=== PATIENT | female | born 1985 | race Caucasian/White ===

== ENCOUNTER 2018-08-11 08:10 | Emergency (ER) | payer OTHER ==
[~2018-08-11] VITALS: Ht 152.4 cm; Wt 84.4 kg
[2018-08-11 08:10] VITALS: BP 140/92
--- NOTE | 2018-08-11 09:45 | REP ---
RIGHT HAND, FOUR VIEWS: There is no evidence of an acute fracture, dislocation or intrinsic bone disease. IMPRESSION: No fracture or dislocation. Electronically Signed by Torsten Grimm MD 08/11/2018 04:15 P
== END 2018-08-11 10:14 | disposition home or self-care (01) ==
LOC: M ED 08:10
DX: S01.81XA Laceration without foreign body of other part of head, initial encounter (principal); S69.91XA Unspecified injury of right wrist, hand and finger(s), initial encounter; W10.8XXA Fall (on) (from) other stairs and steps, initial encounter; Y92.018 Other place in single-family (private) house as the place of occurrence of the external cause

== ENCOUNTER → 2020-05-16 | Outpatient (CLI) | payer MEDICAID | LOC: M OUTALCOH 07:55 | PROVIDERS: ATTEND Psychiatry & Neurology Psychiatry | DX: Z02.89 Encounter for other administrative examinations (principal) ==

== ENCOUNTER 2020-05-23 11:00 | Outpatient (RCR) | payer MEDICAID | END 2020-06-02 | LOC: M OUTALCOH 11:00 | PROVIDERS: ATTEND Psychiatry & Neurology Psychiatry | DX: F12.20 Cannabis dependence, uncomplicated (principal); F17.200 Nicotine dependence, unspecified, uncomplicated ==

== ENCOUNTER 2020-07-02 16:00 | Outpatient (RCR) | payer MEDICAID | END 2020-07-03 | LOC: M OUTALCOH 16:00 | PROVIDERS: ATTEND Psychiatry & Neurology Psychiatry | DX: F12.20 Cannabis dependence, uncomplicated (principal); F17.200 Nicotine dependence, unspecified, uncomplicated ==

== ENCOUNTER → 2020-08-02 | Outpatient (RCR) | payer MEDICAID | LOC: M OUTALCOH 07-04 13:00 | PROVIDERS: ATTEND Psychiatry & Neurology Psychiatry | DX: F12.20 Cannabis dependence, uncomplicated (principal); F17.200 Nicotine dependence, unspecified, uncomplicated ==

== ENCOUNTER 2020-08-27 09:00 | Outpatient (RCR) | payer MEDICAID | END 2020-09-02 | LOC: M OUTALCOH 09:00 | PROVIDERS: ATTEND Psychiatry & Neurology Psychiatry | DX: F12.20 Cannabis dependence, uncomplicated (principal); F17.200 Nicotine dependence, unspecified, uncomplicated ==

== ENCOUNTER 2020-10-01 08:00 | Outpatient (RCR) | payer MEDICAID | END 2020-10-02 | LOC: M OUTALCOH 08:00 | PROVIDERS: ATTEND Psychiatry & Neurology Psychiatry | DX: F12.20 Cannabis dependence, uncomplicated (principal); F17.200 Nicotine dependence, unspecified, uncomplicated ==

== ENCOUNTER 2020-10-28 14:02 | Outpatient (RCR) | payer MEDICAID | END 2020-11-02 | LOC: M OUTALCOH 14:02 | PROVIDERS: ATTEND Psychiatry & Neurology Psychiatry | DX: F12.20 Cannabis dependence, uncomplicated (principal); F17.200 Nicotine dependence, unspecified, uncomplicated ==

== ENCOUNTER → 2020-10-28 | Outpatient (CLI) | payer OTHER ==
--- NOTE | 2020-10-28 14:15 | REP ---
INDICATION: SCOLIOSIS, UNSPECIFIED. COMPARISON: None. TECHNIQUE: Upright AP views of the thoracolumbar spine are provided, two views. FINDINGS: Thoracic vertebral body heights are preserved. No structural vertebral anomaly is seen. There is a mild levoconvex curve in the thoracic spine with its apex at T9. This measures 12 degrees from T6 through T11. No other curvature is appreciated. Pedicles and posterior elements are intact. No bony destructive lesion is seen. IMPRESSION: Mild levoconvex thoracic curvature. <Electronically signed by Fazal Sevilla > 10/28/20 [id number]
== END ==
LOC: M LAB 11:17
PROVIDERS: ATTEND Physician Assistant
DX: M41.9 Scoliosis, unspecified (principal)

== ENCOUNTER → 2020-10-29 | Outpatient (REF) | payer OTHER | LOC: M SFHCWAGY 08:41 | PROVIDERS: ATTEND Nurse Practitioner Women's Health | DX: Z12.4 Encounter for screening for malignant neoplasm of cervix (principal); Z77.9 Other contact with and (suspected) exposures hazardous to health | CPT/HCPCS: 87624; G0123 ==

== ENCOUNTER → 2020-11-12 | Outpatient (REF) | payer MEDICAID | LOC: M LAB REF 19:16 | PROVIDERS: ATTEND Surgery | DX: L72.3 Sebaceous cyst (principal) ==

== ENCOUNTER 2020-12-02 15:56 | Outpatient (RCR) | payer MEDICAID | END 2020-12-03 | LOC: M OUTALCOH 15:56 | PROVIDERS: ATTEND Psychiatry & Neurology Psychiatry | DX: F12.20 Cannabis dependence, uncomplicated (principal); F17.200 Nicotine dependence, unspecified, uncomplicated ==

== ENCOUNTER 2020-12-18 10:00 | Outpatient (RCR) | payer MEDICAID | END 2021-01-02 | LOC: M OUTALCOH 10:00 | PROVIDERS: ATTEND Psychiatry & Neurology Psychiatry | DX: F12.20 Cannabis dependence, uncomplicated (principal); F17.200 Nicotine dependence, unspecified, uncomplicated ==

== ENCOUNTER → 2021-01-09 | Outpatient (CLI) | payer OTHER, MEDICAID ==
--- NOTE | 2021-01-09 11:34 | REP ---
INDICATION: PELVIC AND PERINEAL PAIN OTHER CHRONIC PAIN OVARIAN CYST. COMPARISON: None. TECHNIQUE: Transvesical and transvaginal imaging FINDINGS: The uterus measures 9.5 x 3.9 x 4.9 cm. The parenchymal echo pattern is heterogenous but there are no measurable masses. Due to the heterogeneity of the uterine parenchyma the endometrial echo complex is less than optimally visualized. It has a maximal thickness of approximately 7 mm in its fundal portion. The right ovary measures 3.2 x 2.2 x 1.8 cm and is within normal limits with an RI of 0.40 The left ovary measures 1.8 x 2.2 x 2.6 cm and is within normal limits with an RI 0.59. There is no free fluid in the cul-de-sac. Incidental note is made of nabothian cysts. IMPRESSION: No acute abnormality is identified. Findings as described above. <Electronically signed by Chavo Mata > 01/09/21 [id number]
== END ==
LOC: M WHC 09:41
PROVIDERS: ATTEND Nurse Practitioner Women's Health
DX: R10.2 Pelvic and perineal pain (principal); G89.29 Other chronic pain; Z87.42 Personal history of other diseases of the female genital tract

== ENCOUNTER 2021-01-22 11:00 | Outpatient (RCR) | payer MEDICAID | END 2021-02-02 | LOC: M OUTALCOH 11:00 | PROVIDERS: ATTEND Psychiatry & Neurology Psychiatry | DX: F12.20 Cannabis dependence, uncomplicated (principal); F17.200 Nicotine dependence, unspecified, uncomplicated ==

== ENCOUNTER 2021-03-05 13:35 | Outpatient (RCR) | payer MEDICAID | END 2021-04-04 | LOC: M OUTALCOH 13:35 | PROVIDERS: ATTEND Psychiatry & Neurology Psychiatry | DX: F12.20 Cannabis dependence, uncomplicated (principal); F17.200 Nicotine dependence, unspecified, uncomplicated ==

== ENCOUNTER 2021-04-16 09:29 | Outpatient (RCR) | payer MEDICAID | END 2021-05-05 | LOC: M OUTALCOH 09:29 | PROVIDERS: ATTEND Psychiatry & Neurology Psychiatry | DX: F12.20 Cannabis dependence, uncomplicated (principal); F17.200 Nicotine dependence, unspecified, uncomplicated ==

== ENCOUNTER → 2021-04-23 | Outpatient (CLI) | payer OTHER ==
[2021-04-23 13:28] LABS: HEMOGLOBIN 13.6 g/dl (12.0-15.5); MEAN CORPUSCULAR HGB CONC 32.4 g/dl (32.0-36.5); MEAN CORPUSCULAR VOLUME 92.5 fl (80.0-96.0); PLATELET COUNT, AUTOMATED 328 10^3/uL (150-450); RED BLOOD COUNT 4.54 10^6/uL (4.00-5.40); WHITE BLOOD COUNT 12.3 10^3/uL (4.0-10.0)
[2021-04-23 16:36] LABS: HEPATITIS C VIRUS ABY INDEX < 0.0 INDEX (<0.8); HIV 1&2 SCREEN CENTAUR NEGATIVE (NEGATIVE)
[2021-04-24 15:49] LABS: GC DNA AMPLIFICATION NEGATIVE (NEGATIVE)
== END ==
LOC: M PLALAB 10:25
PROVIDERS: ATTEND Specialist
DX: Z34.81 Encounter for supervision of other normal pregnancy, first trimester (principal)

== ENCOUNTER 2021-05-21 15:21 | Outpatient (RCR) | payer MEDICAID | END 2021-06-02 | LOC: M OUTALCOH 15:21 | PROVIDERS: ATTEND Psychiatry & Neurology Psychiatry | DX: F12.20 Cannabis dependence, uncomplicated (principal); F17.200 Nicotine dependence, unspecified, uncomplicated ==

== ENCOUNTER → 2021-07-02 | Outpatient (CLI) | payer OTHER | LOC: M WHC 08:03 | PROVIDERS: ATTEND Obstetrics & Gynecology | DX: O34.211 Maternal care for low transverse scar from previous cesarean delivery (principal); Z3A.20 20 weeks gestation of pregnancy ==

== ENCOUNTER → 2021-08-15 | Outpatient (CLI) | payer OTHER ==
[2021-08-15 14:04] LABS: HEMATOCRIT 34.6 % (36.0-47.0); HEMOGLOBIN 11.4 g/dl (12.0-15.5); MEAN CORPUSCULAR HGB CONC 32.9 g/dl (32.0-36.5); PLATELET COUNT, AUTOMATED 341 10^3/uL (150-450); RED BLOOD COUNT 3.68 10^6/uL (4.00-5.40); WHITE BLOOD COUNT 14.4 10^3/uL (4.0-10.0)
[2021-08-15 16:19] LABS: GC DNA AMPLIFICATION NEGATIVE (NEGATIVE)
== END ==
LOC: M PLALAB 09:53
PROVIDERS: ATTEND Obstetrics & Gynecology
DX: O34.211 Maternal care for low transverse scar from previous cesarean delivery (principal)

== ENCOUNTER → 2021-09-15 | Outpatient (REF) | payer OTHER | LOC: M SFHCWAGY 12:49 | PROVIDERS: ATTEND Obstetrics & Gynecology | DX: L02.212 Cutaneous abscess of back [any part, except buttock and flank] (principal) ==

== ENCOUNTER → 2021-10-28 | Outpatient (REF) | payer OTHER ==
[~2021-10-28] MED LIST: PREN1CHW PO
== END ==
LOC: M SFHCWAGY 10:16
PROVIDERS: ATTEND Obstetrics & Gynecology
DX: O34.211 Maternal care for low transverse scar from previous cesarean delivery (principal)

== ENCOUNTER → 2021-11-05 | Outpatient (CLI) | payer MEDICAID, OTHER | LOC: M LABSMTC 09:05 | PROVIDERS: ATTEND Anesthesiology | DX: Z20.828 Contact with and (suspected) exposure to other viral communicable diseases (principal); Z11.59 Encounter for screening for other viral diseases ==

== ENCOUNTER 2021-11-10 05:12 | Inpatient (IN) | payer OTHER ==
[~2021-11-10] VITALS: Ht 154.9 cm; Wt 92.0 kg
[2021-11-10] VITALS (9 sets, daily range): BP systolic 99–164; BP diastolic 53–95
[2021-11-10] MEDS ORDERED: HOME MED LIST COMPLETE! XX SCH (05:40)
[2021-11-10] MEDS ORDERED: ceFAZolin SOD 2 GM in IV 1 EA IV ONE (05:45)
[2021-11-10] MEDS ORDERED: BICITRA 30ML SOLN UDC PO ONE (05:45)
[2021-11-10] MEDS ORDERED: LR 1,000 ML IV ONE ×3 (05:45→20:10)
[2021-11-10 06:15] LABS: HEMOGLOBIN 12.1 g/dl (12.0-15.5); MEAN CORPUSCULAR HEMOGLOBIN 29.4 pg (27.0-33.0); MEAN CORPUSCULAR HGB CONC 32.7 g/dl (32.0-36.5); MEAN CORPUSCULAR VOLUME 89.8 fl (80.0-96.0); PLATELET COUNT, AUTOMATED 366 10^3/uL (150-450); RED BLOOD COUNT 4.12 10^6/uL (4.00-5.40); WHITE BLOOD COUNT 17.1 10^3/uL (4.0-10.0)
[2021-11-10] MEDS ORDERED: MORPHINE PRES-FREE INJ 10 MG/10 ML VIAL As Ordered ONE (07:20)
[2021-11-10] MEDS: LR 1,000 ML IV SCH ×2 (07:20→15:12)
[2021-11-10] MEDS ORDERED: KETOROLAC 60MG 2ML VIAL As Ordered ONE (07:21)
[2021-11-10] MEDS ORDERED: ONDANSETRON 4MG 2ML VIAL As Ordered ONE (07:21)
[2021-11-10] MEDS ORDERED: OXYTOCIN 30 UNITS IN 0.9% NaCl 500ML IV BAG (J2590) As Ordered ONE ×3 (07:22→10:00)
[2021-11-10] MEDS ORDERED: PHENYLephrine 500MCG 5ML (100MCG/ML) SYRINGE As Ordered ONE ×2 (08:01→08:48)
[2021-11-10] MEDS ORDERED: ePHEDrine SULFATE 25 MG/5 ML(5MG/ML) SYRINGE As Ordered ONE ×2 (08:01→08:48)
[2021-11-10] MEDS: SLF 3 ML SYR IV SCH ×2 (08:50→16:50)
[2021-11-10] MEDS ORDERED: METOCLOPRAMIDE INJ 10MG/2ML VIAL (J2765 PER 1) IV PRN (08:50)
[2021-11-10] MEDS ORDERED: diphenhydrAMINE 50MG/ML VIAL (J1200) IV PRN (08:50)
[2021-11-10] MEDS ORDERED: **NOTE PATIENT COMMENT** MISC XX SCH (08:50)
[2021-11-10] MEDS ORDERED: NALOXONE INJ 0.4MG/1ML VIAL (J2310 PER 1MG) IV PRN ×2 (08:50)
[2021-11-10] MEDS ORDERED: MEPERIDINE INJ 25 MG/ML VIAL (J2175) IV PRN (08:50)
[2021-11-10] MEDS ORDERED: ONDANSETRON 4MG 2ML VIAL IV PRN ×2 (08:50)
[2021-11-10] MEDS ORDERED: oxyCODONE 5MG TAB PO PRN (08:50)
[2021-11-10] MEDS ORDERED: LR 1,000 ML IV SCH (08:50)
[2021-11-10] MEDS ORDERED: fentaNYL 100 MCG/2 ML INJECTION IV PRN (08:50)
[2021-11-10] MEDS ORDERED: MORPHINE 4 MG/ML 1ML VIAL/SYRINGE IV PRN (08:50)
[2021-11-10] MEDS: PRENATAL VITAMINS CHEWABLE TABLET PO SCH (09:00)
[2021-11-10] MEDS ORDERED: PERCOCET 5MG/325MG TAB PO PRN (09:00)
[2021-11-10] MEDS ORDERED: RHOGAM 300 MCG (1500 IU) INJ (J2790) IM SCH (09:00)
[2021-11-10] MEDS ORDERED: SIMETHICONE 80MG CHEW TAB PO PRN (09:00)
[2021-11-10] MEDS ORDERED: OXYTOCIN DRIP 30 UNITS in IV 1 EA IV SCH ×4 (09:00)
[2021-11-10] MEDS: DOCUSATE SODIUM 100MG CAPSULE PO SCH ×2 (09:00→20:58)
[2021-11-10] MEDS ORDERED: PERCOCET PO (09:39)
[2021-11-10] MEDS ORDERED: IBUP80TA PO (09:39)
[2021-11-10] MEDS ORDERED: COLA100C5 PO (09:39)
[2021-11-10] MEDS ORDERED: diphenhydrAMINE 50MG/ML VIAL (J1200) As Ordered ONE (10:08)
[2021-11-10] MEDS: KETOROLAC 30 MG/ML 1ML VIAL IV SCH ×2 (14:51→20:58)
[2021-11-10] MEDS ORDERED: LOPERAMIDE 2 MG CAPLET PO PRN (16:10)
[2021-11-10] MEDS ORDERED: LACTATED RINGER'S 1000 ML IV ONE (20:10)
[2021-11-10] MEDS: PERCOCET 5MG/325MG TAB PO PRN (23:09)
[2021-11-11] MEDS: SLF 3 ML SYR IV SCH (01:43)
[2021-11-11 02:10] VITALS: BP 116/67
[2021-11-11] MEDS: KETOROLAC 30 MG/ML 1ML VIAL IV SCH (03:57)
[2021-11-11 06:05] VITALS: BP 107/72
[2021-11-11 07:08] LABS: MEAN CORPUSCULAR HEMOGLOBIN 29.2 pg (27.0-33.0); MEAN CORPUSCULAR HGB CONC 32.3 g/dl (32.0-36.5); MEAN CORPUSCULAR VOLUME 90.4 fl (80.0-96.0); PLATELET COUNT, AUTOMATED 293 10^3/uL (150-450); RED BLOOD COUNT 3.32 10^6/uL (4.00-5.40); WHITE BLOOD COUNT 17.2 10^3/uL (4.0-10.0)
[2021-11-11 07:14] LABS: HEMOGLOBIN 9.7 g/dl (12.0-15.5)
[2021-11-11] MEDS: DOCUSATE SODIUM 100MG CAPSULE PO SCH ×2 (08:07→21:05)
[2021-11-11] MEDS: PRENATAL VITAMINS CHEWABLE TABLET PO SCH (09:00)
[2021-11-11 10:00] VITALS: BP 127/60
[2021-11-11] MEDS: PERCOCET 5MG/325MG TAB PO PRN ×3 (10:08→22:43)
[2021-11-11] MEDS: IBUPROFEN 800 MG TAB PO SCH ×2 (11:00→18:45)
[2021-11-11 14:00] VITALS: BP 111/56
[2021-11-11 18:00] VITALS: BP 119/59
[2021-11-11 22:00] VITALS: BP 128/75
[2021-11-12 02:00] VITALS: BP 128/69
[2021-11-12] MEDS: IBUPROFEN 800 MG TAB PO SCH ×2 (02:22→11:00)
[2021-11-12 06:00] VITALS: BP 105/56
[2021-11-12] MEDS: DOCUSATE SODIUM 100MG CAPSULE PO SCH (08:07)
[2021-11-12] MEDS: PRENATAL VITAMINS CHEWABLE TABLET PO SCH (08:07)
[2021-11-12] MEDS: PERCOCET 5MG/325MG TAB PO PRN (08:08)
[2021-11-12] MEDS ORDERED: MEASLES,MUMPS,RUBELLA VACCINE INJ (MMR-II) (90707) SC.IMMUN ONE (09:00)
[2021-11-12 10:00] VITALS: BP 140/70
== END 2021-11-12 13:06 | disposition home or self-care (01) | DRG 540 ==
LOC: M LDI 05:12 → M OBS 10:40
PROVIDERS: ADMIT Obstetrics & Gynecology; ATTEND Obstetrics & Gynecology
PROC: 0UB70ZZ Excision of Bilateral Fallopian Tubes, Open Approach (ICD-10-PCS; 2021-11-10)
PROC: 0JB80ZZ Excision of Abdomen Subcutaneous Tissue and Fascia, Open Approach (ICD-10-PCS; 2021-11-10)
PROC: 10D00Z1 Extraction of Products of Conception, Low, Open Approach (ICD-10-PCS; principal; 2021-11-10 07:30)
DX: O34.211 Maternal care for low transverse scar from previous cesarean delivery (principal); O08.0 Genital tract and pelvic infection following ectopic and molar pregnancy; Z37.0 Single live birth; Z3A.39 39 weeks gestation of pregnancy; O09.523 Supervision of elderly multigravida, third trimester; Z30.2 Encounter for sterilization

== ENCOUNTER → 2022-01-07 | Outpatient (REF) | payer OTHER ==
[~2022-01-07] MED LIST changes: +COLA100C5 PO; +IBUP80TA PO; +PERCOCET PO
== END ==
LOC: M LAB REF 16:38
PROVIDERS: ATTEND Nurse Practitioner Family
DX: R05.9 Cough, unspecified (principal)

== ENCOUNTER → 2022-01-09 | Outpatient (CLI) | payer OTHER | LOC: M RAD 09:20 | PROVIDERS: ATTEND Nurse Practitioner Family | DX: R05.9 Cough, unspecified (principal) ==